=== PATIENT | female | born 1960 | race Caucasian/White ===

== ENCOUNTER 2022-11-02 07:28 | Emergency (ER) | payer MEDICAID ==
[~2022-11-02] VITALS: Ht 152.4 cm; Wt 51.8 kg
[2022-11-02 07:30] VITALS: BP 166/90
[2022-11-02] MEDS ORDERED: PRED20TA PO (08:48)
[2022-11-02] MEDS ORDERED: VALA100031 PO (08:48)
[2022-11-02] MEDS ORDERED: HYDR-3965 PO (08:49)
[2022-11-02] MEDS ORDERED: HYDROcodone/acetaminophen 5mg/325mg tablet PO ONE (08:50)
== END 2022-11-02 09:15 | disposition home or self-care (01) ==
LOC: ER 07:29
DX: B02.9 Zoster without complications (principal); F17.200 Nicotine dependence, unspecified, uncomplicated
CPT/HCPCS: 99283

== ENCOUNTER 2022-11-26 07:49 | Emergency (ER) | payer MEDICAID ==
[~2022-11-26] VITALS: Ht 160 cm; Wt 50.0 kg
[~2022-11-26 07:49] MED LIST: HYDR-3965 PO; PRED20TA PO; VALA100031 PO
[2022-11-26 07:58] VITALS: BP 173/78
[2022-11-26] MEDS ORDERED: HYDR-3965 PO (08:37)
[2022-11-26] MEDS ORDERED: SITA1TAB6 PO (08:37)
[2022-11-26] MEDS ORDERED: GABA-534 PO (08:37)
== END 2022-11-26 08:52 | disposition home or self-care (01) ==
LOC: ER 07:50
DX: B02.9 Zoster without complications (principal); Z79.899 Other long term (current) drug therapy; Z76.0 Encounter for issue of repeat prescription
CPT/HCPCS: 99281